=== PATIENT | female | born 1980 | race Caucasian/White ===

== ENCOUNTER 2016-03-30 10:18 | Emergency (ER) | payer OTHER ==
[~2016-03-30] VITALS: Ht 162.6 cm; Wt 89.4 kg
[~2016-03-30 10:18] MED LIST: AMBIEN10 MG PO; AMITRIPTYLINE H50 MG PO; ANTIVERT25 MG PO; ATARAX,VISTARIL50 MG PO; ATIVAN0.5 MG PO; BENTYL20 MG PO; CEPHALEXIN500 MG PO; CITRATE OF MAG296 ML PO; CYCLOBENZAPRINE10 MG PO; DEXILANT60 MG PO; DIFLUCAN150 MG PO; DILAUDID4 MG PO; ESCITALOPRAM OX10 MG PO; FIORICET,ESG1 TABLET PO; FLEXERIL10 MG PO; GABAPENTIN300 MG PO; HYDROMORPHONE HC4 MG PO; IBUPROFEN800 MG PO; KEFLEX500 MG PO; KEPPRA1000 MG PO; KEPPRA250 MG PO; KEPPRA500 MG PO; KEPPRA750 MG PO; LAMICTAL25 MG PO; LEVOTHYROXINE50 MCG PO; LIPITOR40 MG PO; LORAZEPAM1 MG PO; MACROBID100 MG PO; MOBIC7.5 MG PO; NAPROSYN500 MG PO; NEURONTIN300 MG PO; NORCO 5/3251 TABLET PO; ONDANSETRON ODT4 MG PO; ONDANSETRON ODT8 MG PO; OXYCODONE HCL5 MG PO; PERCOCET 5/31 TABLET PO; PHENERGAN12.5 MG PR; PROZAC40 MG PO; SKELAXIN800 MG PO; SUMATRIPTAN SU100 MG PO; TIZANIDINE HCL4 MG PO; TRAZODONE HCL50 MG PO; TYLENOL REGULA325 MG PO; TYLENOL WITH C1 EACH PO; UNITHROID50 MCG PO; VALIUM2 MG PO; VALIUM5 MG PO; ZANAFLEX4 M1 PO; ZOFRAN ODT8 MG PO; ZOFRAN4 MG PO; ZOLOFT100 MG PO; ZOLOFT25 MG PO
[2016-03-30] MEDS ORDERED: RISPERDAL1 MG PO (12:08)
[2016-03-30] MEDS ORDERED: CYMBALTA30 MG PO (12:08)
[2016-03-30] MEDS ORDERED: GABAPENTIN100 MG PO (12:08)
[2016-03-30] MEDS ORDERED: EFFEXOR XR150 MG PO (12:09)
[2016-03-30] MEDS ORDERED: ACID REDUCER 1150 MG PO (12:09)
[2016-03-30] MEDS ORDERED: AMBIEN10 MG PO (12:09)
[2016-03-30] MEDS ORDERED: LIPITOR40 MG PO (12:10)
[2016-03-30] MEDS ORDERED: KEPPRA XR750 MG PO (12:10)
[2016-03-30] MEDS ORDERED: NAPROSYN500 MG PO (14:35)
[2016-03-30 14:55] VITALS: BP 123/95
== END 2016-03-30 14:56 | disposition home or self-care (01) ==
LOC: EME 10:18
PROC: 0H96XZZ Drainage of Back Skin, External Approach (ICD-10-PCS; principal; 2016-03-30)
DX: L02.212 Cutaneous abscess of back [any part, except buttock and flank] (principal); L03.312 Cellulitis of back [any part except buttock and flank]; Z91.14 Patient's other noncompliance with medication regimen; F17.210 Nicotine dependence, cigarettes, uncomplicated; Z71.6 Tobacco abuse counseling
CPT/HCPCS: 87070; 87075; 87077; 87147; 87186; 87205; 99281; 99284; J3010

== ENCOUNTER → 2016-05-25 15:58 | Emergency (ER) | payer OTHER ==
[~2016-05-25] VITALS: Ht 162.6 cm; Wt 90.6 kg
[~2016-05-25 15:58] MED LIST changes: +ACID REDUCER 1150 MG PO; +CYMBALTA30 MG PO; +EFFEXOR XR150 MG PO; +GABAPENTIN100 MG PO; +KEPPRA XR750 MG PO; +RISPERDAL1 MG PO
[2016-05-25 16:29] VITALS: BP 93/72
== END | disposition left against medical advice (07) ==
LOC: EME 15:58
DX: M54.9 Dorsalgia, unspecified (principal); W10.9XXA Fall (on) (from) unspecified stairs and steps, initial encounter; Z53.21 Procedure and treatment not carried out due to patient leaving prior to being seen by health care provider

== ENCOUNTER → 2016-11-19 | Outpatient (CLI) | payer OTHER ==
[~2016-11-19] MED LIST changes: +METFORMIN HCL500 M4 PO; +ULTRAM50 MG PO
== END | disposition home or self-care (01) ==
LOC: OPR 08:43 → EDSTATUS 09:00
PROC: 0FB03ZX Excision of Liver, Percutaneous Approach, Diagnostic (ICD-10-PCS; principal; 2016-11-19)
DX: K76.0 Fatty (change of) liver, not elsewhere classified (principal); F17.210 Nicotine dependence, cigarettes, uncomplicated; K21.9 Gastro-esophageal reflux disease without esophagitis; G40.909 Epilepsy, unspecified, not intractable, without status epilepticus; F41.9 Anxiety disorder, unspecified; F32.9 Major depressive disorder, single episode, unspecified; F43.10 Post-traumatic stress disorder, unspecified
CPT/HCPCS: 77012; 88307; 88313; J3010

== ENCOUNTER 2016-11-22 06:52 | Emergency (ER) | payer OTHER ==
[~2016-11-22] VITALS: Ht 165.1 cm; Wt 88.0 kg
[~2016-11-22 06:52] MED LIST changes: -ULTRAM50 MG PO
[2016-11-22 08:02] LABS: HEMATOCRIT 38.8 % (36.0-46.0); MCH 31.3 PG (29.0-34.0); MCHC 32.5 G/DL (30.0-36.0); MCV 96.5 FL (83-99); MEAN PLAT.VOLUME 10.4 uM^3 (9.5-12.4); PLATELET COUNT 304 K/uL (156-360); RBC DIS.WIDTH-CV 14.2 % (11.8-14.6); RBC DIS.WIDTH-SD 50.3 % (39-53); RED BLOOD COUNT 4.02 M/uL (3.80-5.20); WHITE BLOOD COUNT 9.2 K/uL (4.1-10.2)
[2016-11-22 08:11] LABS: D-DIMER ELISA < 150.00 ng/mLDDU (<230)
[2016-11-22 08:24] LABS: ANION GAP 7 MEQ/L (2-14); CHLORIDE 101 MEQ/L (99-109); POTASSIUM 4.5 MEQ/L (3.7-5.4); SAMPLE HEMOLYSIS CHECK 1; SAMPLE ICTERIC CHECK 0; SAMPLE LIPEMIA CHECK 0; SODIUM 133 MEQ/L (136-147); TOTAL BILIRUBIN 0.2 MG/DL (0.0-1.0)
[2016-11-22 08:30] LABS: ALKALINE PHOSPHATASE 138 IU/L (3-129); GFR ESTIMATE (CALCULATED) > 59 mL/min/; GLUCOSE 260 mg/dL (70-99); UREA NITROGEN (BUN) 10 mg/dL (9-23)
[2016-11-22] MEDS ORDERED: ULTRAM50 MG PO (10:46)
[2016-11-22 10:55] VITALS: BP 132/82
== END 2016-11-22 10:55 | disposition home or self-care (01) ==
LOC: EME 06:52
PROVIDERS: Emergency Medicine
DX: G89.18 Other acute postprocedural pain (principal); R07.81 Pleurodynia; K21.9 Gastro-esophageal reflux disease without esophagitis; M79.7 Fibromyalgia; F32.9 Major depressive disorder, single episode, unspecified; F10.10 Alcohol abuse, uncomplicated; F19.10 Other psychoactive substance abuse, uncomplicated; F17.200 Nicotine dependence, unspecified, uncomplicated
CPT/HCPCS: 71020; 80053; 85027; 85379; 93005; 99281; 99285

== ENCOUNTER 2017-10-01 12:48 | Inpatient (IN) | payer OTHER ==
[~2017-10-01] VITALS: Ht 162.6 cm; Wt 78.2 kg
[~2017-10-01 12:48] MED LIST changes: +ULTRAM50 MG PO
[2017-10-01 13:34] LABS: BASE EXCESS -3.1 mEq/L (-3 to +3); CARBOXY HGB 2.9 % (0-5); COMMENTS - BLOOD GASES A+C+; METHEMOGLOBIN 0.9 % (0-1.5); PCO2 39 mm Hg (35-45); PO2 90 mm Hg (80-100); SITE RR; pH 7.36 (7.35-7.45)
[2017-10-01 13:35] LABS: DEVICE 840; FI02 55 %; MECHANICAL RATE 18 resp/min; MODE AC; PEEP 5 CM/H20; TIDAL VOLUME 400 ML; TOTAL RESP RATE 18 resp/min
[2017-10-01 13:41] LABS: APPEARANCE CLEAR ((CLEAR)); BILIRUBIN NEGATIVE; BLOOD NEGATIVE; COLOR STRAW ((YELLOW)); GLUCOSE (STRIP) NEGATIVE; KETONES NEGATIVE; LEUKOCYTES NEGATIVE; NITRITE NEGATIVE; PROTEIN (STRIP) NEGATIVE; SPECIFIC GRAVITY 1.004 (1.000-1.030); UCUL ADDED? NO; UROBILINOGEN 0.2 MG/DL (0.2-1.0)
[2017-10-01 13:44] LABS: BASOPHIL (%) 0.3 % (0-1); EOSINOPHIL (%) 5.1 % (0-5); EOSINOPHIL COUNT 0.3 K/uL (0-0.3); HEMATOCRIT 38.2 % (36.0-46.0); IMMATURE GRANULOCYTE (%) 0.2 % (0.0-0.7); LYMPHOCYTE (%) 33.6 % (15-42); MCH 32.3 PG (29.0-34.0); MCV 94.8 FL (83-99); MONOCYTE (%) 5.5 % (3-12); MONOCYTE COUNT 0.3 K/uL (0-0.8); NEUTROPHIL (%) 55.3 % (45-76); NEUTROPHIL COUNT 3.2 K/uL (1.8-6.4); PLATELET COUNT 235 K/uL (156-360); RBC DIS.WIDTH-CV 13.5 % (11.8-14.6); RED BLOOD COUNT 4.03 M/uL (3.80-5.20); WHITE BLOOD COUNT 5.8 K/uL (4.1-10.2)
[2017-10-01 13:59] LABS: ALBUMIN 4.2 g/dL (3.2-4.8); CHLORIDE 108 mEq/L (99-109); POTASSIUM 4.1 mEq/L (3.7-5.4); SODIUM 140 mEq/L (136-147)
[2017-10-01 14:01] LABS: GLUCOSE 101 mg/dL (70-99); TOTAL PROTEIN 7.6 g/dL (6.4-8.3)
[2017-10-01 14:03] LABS: TOTAL BILIRUBIN 0.2 mg/dL (0.0-1.0)
[2017-10-01 14:05] LABS: ALKALINE PHOSPHATASE 120 IU/L (3-129); CREATININE 0.8 mg/dL (0.6-1.3); GFR ESTIMATE (CALCULATED) > 59 mL/min/
[2017-10-01 14:06] LABS: AMPHETAMINE NEGATIVE (500 ng/mL); BARBITURATES NEGATIVE (200 ng/mL); BENZODIAZEPINES PRESUMPTIVE POSITIVE (150 ng/mL); BUPRENORPHINE NEGATIVE (10 ng/mL); COCAINE PRESUMPTIVE POSITIVE (150 ng/mL); METHADONE NEGATIVE (200 ng/mL); METHAMPHETAMINE NEGATIVE (500 ng/mL); OPIATES (MORPHINE) NEGATIVE (100 ng/mL); OXYCODONE NEGATIVE (100 ng/mL); PHENCYCLIDINE NEGATIVE (25 ng/mL); PROPOXYPHENE NEGATIVE (300 ng/mL); THC CANNABINOIDS NEGATIVE (50 ng/mL); TRICYCLIC ANTIDEPRESSANTS PRESUMPTIVE POSITIVE (300 ng/mL)
[2017-10-01 14:06] LABS: AST (GOT) 20 IU/L (2-34); DIRECT BILIRUBIN 0.1 mg/dL (0.0-0.3)
[2017-10-01 14:07] LABS: UREA NITROGEN (BUN) 6 mg/dL (9-23)
[2017-10-01 14:08] LABS: SALICYLATE < 5.0 MG/DL (15-30)
[2017-10-01 14:09] LABS: ACETAMINOPHEN (TYLENOL) < 10 mcg/mL (10-30); ALT (GPT) 19 IU/L (3-49); LIPASE 5 U/L (1.0-51.0)
[2017-10-01 14:16] LABS: QUANTITATIVE HCG < 4.0 MIU/ML
[2017-10-01 14:42] LABS: BENZODIAZEPINES, URINE SCREEN POSITIVE (200 ng/mL)
[2017-10-01 15:19] LABS: THYROTROPIN (TSH) 2.2 MIU/L (0.4-5.5)
[2017-10-01 18:36] VITALS: BP 135/96
[2017-10-01 19:00] VITALS: BP 126/87
[2017-10-01 20:00] VITALS: BP 113/78
[2017-10-01 21:00] VITALS: BP 100/69
[2017-10-01 22:00] VITALS: BP 113/84
[2017-10-01 23:00] VITALS: BP 105/78
[2017-10-02] VITALS (23 sets, daily range): BP systolic 89–125; BP diastolic 49–82
[2017-10-02 05:41] LABS: CHLORIDE 103 MEQ/L (99-109); CREATININE 0.7 MG/DL (0.6-1.3); GFR ESTIMATE (CALCULATED) > 59 mL/min/; GLUCOSE 98 mg/dL (70-99); POTASSIUM 3.4 MEQ/L (3.7-5.4); SODIUM 141 MEQ/L (136-147); UREA NITROGEN (BUN) 6 mg/dL (9-23)
[2017-10-02 05:52] LABS: BASOPHIL (%) 0.3 % (0-1); EOSINOPHIL (%) 3.4 % (0-5); EOSINOPHIL COUNT 0.2 K/uL (0-0.3); HEMATOCRIT 38.3 % (36.0-46.0); HEMOGLOBIN 12.8 G/DL (11.9-15.5); IMMATURE GRANULOCYTE (%) 0.3 % (0.0-0.7); LYMPHOCYTE (%) 18.2 % (15-42); LYMPHOCYTE COUNT 1.2 K/uL (1.0-2.8); MCH 31.8 PG (29.0-34.0); MCHC 33.4 G/DL (30.0-36.0); MONOCYTE (%) 8.1 % (3-12); MONOCYTE COUNT 0.5 K/uL (0-0.8); NEUTROPHIL (%) 69.7 % (45-76); NEUTROPHIL COUNT 4.7 K/uL (1.8-6.4); RBC DIS.WIDTH-CV 13.7 % (11.8-14.6); RBC DIS.WIDTH-SD 47.8 % (39-53); RED BLOOD COUNT 4.03 M/uL (3.80-5.20); WHITE BLOOD COUNT 6.7 K/uL (4.1-10.2)
[2017-10-02 06:02] LABS: COMMENTS - BLOOD GASES C+; SITE RR
[2017-10-02 06:03] LABS: DEVICE VENT; FI02 40 %; MECHANICAL RATE 18 resp/min; MODE AC; PCO2 37 mm Hg (35-45); PEEP 5 CM/H20; PO2 116 mm Hg (80-100); TIDAL VOLUME 400 ML; TOTAL RESP RATE 18 resp/min; pH 7.54 (7.35-7.45)
[2017-10-02 06:04] LABS: BICARBONATE 31.6 mEq/L (22-26); CARBOXY HGB 0.9 % (0-5); METHEMOGLOBIN 0.9 % (0-1.5)
[2017-10-02 06:14] LABS: PLAT.SUFFICIENCY ADEQUATE; PLATELET COUNT 220 K/uL (156-360)
[2017-10-03] VITALS (11 sets, daily range): BP systolic 75–105; BP diastolic 42–67
[2017-10-03 05:28] LABS: BASOPHIL (%) 0.4 % (0-1); EOSINOPHIL (%) 4.5 % (0-5); EOSINOPHIL COUNT 0.2 K/uL (0-0.3); HEMATOCRIT 35.3 % (36.0-46.0); HEMOGLOBIN 11.8 G/DL (11.9-15.5); IMMATURE GRANULOCYTE (%) 0.2 % (0.0-0.7); LYMPHOCYTE (%) 29.9 % (15-42); LYMPHOCYTE COUNT 1.6 K/uL (1.0-2.8); MCH 32.2 PG (29.0-34.0); MCHC 33.4 G/DL (30.0-36.0); MCV 96.4 FL (83-99); MONOCYTE COUNT 0.3 K/uL (0-0.8); NEUTROPHIL COUNT 3.1 K/uL (1.8-6.4); PLATELET COUNT 232 K/uL (156-360); RBC DIS.WIDTH-CV 13.9 % (11.8-14.6); RBC DIS.WIDTH-SD 49.1 % (39-53); RED BLOOD COUNT 3.66 M/uL (3.80-5.20); WHITE BLOOD COUNT 5.3 K/uL (4.1-10.2)
[2017-10-03 05:45] LABS: CHLORIDE 103 MEQ/L (99-109); CREATININE 0.7 MG/DL (0.6-1.3); GFR ESTIMATE (CALCULATED) > 59 mL/min/; GLUCOSE 87 mg/dL (70-99); POTASSIUM 3.5 MEQ/L (3.7-5.4); SODIUM 138 MEQ/L (136-147); UREA NITROGEN (BUN) 4 mg/dL (9-23)
[2017-10-03] MEDS ORDERED: BRINTELLIX20 MG PO (12:44)
[2017-10-03] MEDS ORDERED: VALIUM10 MG PO (12:45)
[2017-10-04 00:38] VITALS: BP 102/58
[2017-10-04 04:57] VITALS: BP 88/48
[2017-10-04 07:19] VITALS: BP 92/62
[2017-10-04 16:05] VITALS: BP 107/61
[2017-10-04] MEDS ORDERED: VALIUM10 MG PO (19:52)
[2017-10-04] MEDS ORDERED: AMBIEN10 MG PO (19:53)
[2017-10-04] MEDS ORDERED: BRINTELLIX20 MG PO (19:55)
[2017-10-04] MEDS ORDERED: MINIPRESS5 MG PO (19:56)
[2017-10-04] MEDS ORDERED: DEPAKOTE ER500 MG PO (21:24)
== END 2017-10-04 17:17 | DRG 917 ==
LOC: EME 12:48 → 4WEST 16:49 → EDOF 16:49 → ENRESERV 16:52 → 4WEST 18:31 → ENRESERV 10-03 11:06 → 5EAST 10-03 16:22
PROVIDERS: Emergency Medicine; Specialist
PROC: 5A1945Z Respiratory Ventilation, 24-96 Consecutive Hours (ICD-10-PCS; principal; 2017-10-01)
PROC: 0BH17EZ Insertion of Endotracheal Airway into Trachea, Via Natural or Artificial Opening (ICD-10-PCS; principal; 2017-10-01)
DX: T42.4X2A Poisoning by benzodiazepines, intentional self-harm, initial encounter (principal); J96.00 Acute respiratory failure, unspecified whether with hypoxia or hypercapnia; F33.2 Major depressive disorder, recurrent severe without psychotic features; T42.6X2A Poisoning by other antiepileptic and sedative-hypnotic drugs, intentional self-harm, initial encounter; E03.9 Hypothyroidism, unspecified; E87.6 Hypokalemia; F60.9 Personality disorder, unspecified; F12.90 Cannabis use, unspecified, uncomplicated; F14.90 Cocaine use, unspecified, uncomplicated; G89.29 Other chronic pain; E78.5 Hyperlipidemia, unspecified; F17.200 Nicotine dependence, unspecified, uncomplicated; K21.9 Gastro-esophageal reflux disease without esophagitis
CPT/HCPCS: 36600; 70450; 71045; 80048; 80076; 81003; 82948; 83690; 83735; 84100; 84443; 84702; 84999; 85025; 87070; 87205; 87641; 93005; 94002; 94003; 94799; 99281; 99285; G0480; J0330; J1644; J2704; J3480; J7070

== ENCOUNTER 2017-10-04 17:15 | Inpatient (IN) | payer OTHER ==
[~2017-10-04] VITALS: Ht 162.6 cm; Wt 74.9 kg
[~2017-10-04 17:15] MED LIST changes: +BRINTELLIX20 MG PO; +VALIUM10 MG PO
[2017-10-04 17:48] VITALS: BP 115/76
[2017-10-04] MEDS ORDERED: VALIUM10 MG PO (19:52)
[2017-10-04] MEDS ORDERED: AMBIEN10 MG PO (19:53)
[2017-10-04] MEDS ORDERED: BRINTELLIX20 MG PO (19:55)
[2017-10-04] MEDS ORDERED: MINIPRESS5 MG PO (19:56)
[2017-10-04] MEDS ORDERED: DEPAKOTE ER500 MG PO (21:24)
[2017-10-05 07:52] VITALS: BP 113/65
[2017-10-05 16:12] VITALS: BP 113/69
[2017-10-06 07:55] VITALS: BP 90/55
[2017-10-06 16:04] VITALS: BP 92/55
[2017-10-07 00:04] VITALS: BP 134/80
[2017-10-07 07:53] VITALS: BP 95/50
[2017-10-07 16:38] VITALS: BP 113/71
[2017-10-08 08:08] VITALS: BP 90/51
[2017-10-08 15:18] VITALS: BP 113/61
[2017-10-09 07:49] VITALS: BP 109/59
[2017-10-09 16:56] VITALS: BP 116/65
[2017-10-10 07:29] VITALS: BP 96/61
[2017-10-10] MEDS ORDERED: TRAZODONE HCL100 MG PO (08:57)
[2017-10-10] MEDS ORDERED: GEODON40 MG PO (08:57)
[2017-10-10] MEDS ORDERED: LAMICTAL25 MG PO (09:00)
[2017-10-10] MEDS ORDERED: LAMICTAL100 MG PO (09:00)
== END 2017-10-10 10:24 | disposition home or self-care (01) | DRG 885 ==
LOC: 1WEST 17:15
DX: F33.2 Major depressive disorder, recurrent severe without psychotic features (principal); F14.20 Cocaine dependence, uncomplicated; R45.851 Suicidal ideations; F12.20 Cannabis dependence, uncomplicated; E78.5 Hyperlipidemia, unspecified; F60.9 Personality disorder, unspecified; K21.9 Gastro-esophageal reflux disease without esophagitis; E66.9 Obesity, unspecified; Z68.28 Body mass index [BMI] 28.0-28.9, adult
CPT/HCPCS: 97150 GO; 97165 GO; Q0177